=== PATIENT | female | born 1975 | race African-American/Black ===

== ENCOUNTER 2019-05-02 14:01 | Emergency (ER) | payer SELFPAY ==
[~2019-05-02] VITALS: Ht 165.1 cm; Wt 131.4 kg
[2019-05-02 14:32] VITALS: Ht 165.1 cm; Wt 131.4 kg
[2019-05-02 14:57] LABS: BASOPHILS 0.3 % (0-2); EOSINOPHILS 2.1 % (0-7); HEMATOCRIT 34.4 % (36.0-48.0); HEMOGLOBIN 11.8 g/dL (12-16); IMMATURE GRANULOCYTES 0.2 % (0-5); LYMPHOCYTES 27.8 % (15-50); MCH 34.7 pg (26.0-34.0); MCHC 34.3 g/dL (31.0-37.0); MCV 101.2 fL (80.0-100.0); MEAN PLATELET VOLUME 9.9 fL (7.4-10.4); MONOCYTES 7.9 % (2-11); NEUTROPHILS 61.7 % (40-80); PLATELET COUNT 210 10x3/uL (130-400); WBC 5.8 10x3/uL (4.8-10.8)
[2019-05-02 15:12] LABS: HCG SERUM NEGATIVE (NEGATIVE)
[2019-05-02 15:13] LABS: ALBUMIN 3.1 g/dL (3.4-5.0); ALKALINE PHOSPHATASE 68 U/L (46-116); ALT (SGPT) 10 U/L (10-68); BILIRUBIN - TOTAL 0.49 mg/dL (0.2-1.3); CALC OSMOLALITY 284 mosm/kg (275-300); CALCIUM 8.7 mg/dL (8.5-10.1); CARBON DIOXIDE 28.7 mmol/L (21.0-32.0); CHLORIDE - SERUM 106 mmol/L (98-107); CREATININE - SERUM 0.9 mg/dL (0.6-1.3); GLUCOSE 131 mg/dL (74-106); POTASSIUM - SERUM 3.9 mmol/L (3.5-5.1); PROTEIN - SERUM 7.1 g/dL (6.4-8.2); SODIUM 142 mmol/L (136-145); UREA NITROGEN 13 mg/dL (7-18); eGFR NON AFRICAN AMERICAN 72 mL/min (90-120)
[2019-05-02 15:26] LABS: CKMB 0.3 U/L (0.0-3.6); CREATINE KINASE 71 UL (21-215); TROPONIN-I < 0.017 ng/mL (0.000-0.060)
[2019-05-02] MEDS ORDERED: ALBUTEROL SULF8.5 GM INH (18:37)
[2019-05-02] MEDS ORDERED: LEVAQUIN750 MG PO (18:37)
[2019-05-02 20:15] VITALS: BP 149/88
== END 2019-05-02 20:10 | disposition home or self-care (01) ==
LOC: D.ER 14:01
PROVIDERS: Emergency Medicine
DX: J18.9 Pneumonia, unspecified organism (principal)

== ENCOUNTER 2019-09-19 14:25 | Emergency (ER) | payer MEDICAID ==
[~2019-09-19] VITALS: Ht 165.1 cm; Wt 142.2 kg
[~2019-09-19 14:25] MED LIST: ALBUTEROL SULF8.5 GM INH; LEVAQUIN750 MG PO
[2019-09-19 14:35] VITALS: Ht 165.1 cm; Wt 142.2 kg
[2019-09-19 15:56] LABS: BASOPHILS 0.2 % (0-2); EOSINOPHILS 1.9 % (0-7); HEMATOCRIT 37.1 % (36.0-48.0); HEMOGLOBIN 12.3 g/dL (12-16); IMMATURE GRANULOCYTES 0.4 % (0-5); LYMPHOCYTES 27.1 % (15-50); MCHC 33.2 g/dL (31.0-37.0); MCV 102.5 fL (80.0-100.0); MEAN PLATELET VOLUME 9.8 fL (7.4-10.4); MONOCYTES 5.7 % (2-11); NEUTROPHILS 64.7 % (40-80); PLATELET COUNT 233 10x3/uL (130-400); RBC 3.62 10x6/uL (4.00-5.40); RDW 11.8 % (11.5-14.5); WBC 8.4 10x3/uL (4.8-10.8)
[2019-09-19 16:16] LABS: CALC OSMOLALITY 280 mosm/kg (275-300); CALCIUM 8.6 mg/dL (8.5-10.1); CARBON DIOXIDE 28.3 mmol/L (21.0-32.0); CHLORIDE - SERUM 105 mmol/L (98-107); CREATININE - SERUM 0.7 mg/dL (0.6-1.3); GLUCOSE 127 mg/dL (74-106); POTASSIUM - SERUM 3.8 mmol/L (3.5-5.1); SODIUM 139 mmol/L (136-145); UREA NITROGEN 15 mg/dL (7-18); eGFR NON AFRICAN AMERICAN > 90 mL/min (90-120)
[2019-09-19 16:23] LABS: ALKALINE PHOSPHATASE 85 U/L (46-116); ALT (SGPT) 15 U/L (10-68); BILIRUBIN - TOTAL 0.42 mg/dL (0.2-1.3); PROTEIN - SERUM 7.5 g/dL (6.4-8.2)
[2019-09-19 17:02] LABS: APPEARANCE CLEAR (CLEAR); BILIRUBIN NEGATIVE (NEGATIVE); COLOR YELLOW (YELLOW); GLUCOSE NEGATIVE (NEGATIVE); KETONE NEGATIVE (NEGATIVE); NITRITE NEGATIVE (NEGATIVE); PROTEIN NEGATIVE (NEGATIVE); UROBILINOGEN NORMAL (NORMAL)
[2019-09-19] MEDS ORDERED: ULTRAM50 MG PO (17:43)
[2019-09-19] MEDS ORDERED: GABAPENTIN300 MG PO (17:56)
[2019-09-19 18:01] VITALS: BP 135/74
== END 2019-09-19 18:01 | disposition home or self-care (01) ==
LOC: D.ER 14:25
PROVIDERS: Family Medicine
DX: R60.0 Localized edema (principal); E11.9 Type 2 diabetes mellitus without complications; M54.5 Low back pain; W19.XXXA Unspecified fall, initial encounter; Y93.9 Activity, unspecified; Y92.9 Unspecified place or not applicable; M54.16 Radiculopathy, lumbar region

== ENCOUNTER 2020-04-19 00:19 | Emergency (ER) | payer MEDICAID ==
[~2020-04-19] VITALS: Ht 165.1 cm; Wt 131.8 kg
[~2020-04-19 00:19] MED LIST changes: +DIFLUCAN150 MG PO; +GABAPENTIN300 MG PO; +ULTRAM50 MG PO; +ZPAK PO
[2020-04-19 00:24] VITALS: BP 128/83; Ht 165.1 cm; Wt 131.8 kg
[2020-04-19] MEDS ORDERED: ALBUTEROL SULF8.5 GM INH (00:26)
== END 2020-04-19 01:33 | disposition home or self-care (01) ==
LOC: D.ER 00:19
DX: M79.10 Myalgia, unspecified site (principal); J45.909 Unspecified asthma, uncomplicated; Z72.0 Tobacco use

== ENCOUNTER 2020-04-19 02:09 | Emergency (ER) | payer MEDICAID ==
[~2020-04-19] VITALS: Ht 165.1 cm; Wt 136.4 kg
[2020-04-19 02:18] VITALS: BP 120/62; Ht 165.1 cm; Wt 136.4 kg
== END 2020-04-19 03:04 | disposition home or self-care (01) ==
LOC: D.ER 02:09
DX: M79.10 Myalgia, unspecified site (principal); Z76.5 Malingerer [conscious simulation]; J45.909 Unspecified asthma, uncomplicated